=== PATIENT | female | born 1935 | race Caucasian/White ===

== ENCOUNTER 2024-01-04 10:16 | Emergency (ER) | payer MEDICARE, OTHER ==
[2024-01-04 12:48] LABS: #Basophils Less than 0.03 10x3/uL (0.0-0.2); %Basophils 0.1 % (0.0-1.0); %Eosinophils 0.4 % (0.0-10.0); %Lymphocytes 13.3 % (21.0-51.0); %Monocytes 8.6 % (0.0-10.0); %Neutrophils 77.1 % (42.0-75.0); Hematocrit 32.7 % (36.0-47.0); Hemoglobin 10.3 g/dL (12.0-16.0); Mean Corpuscular HGB CONC 31.5 g/dL (32.0-36.0); Mean Corpuscular Hemoglobin 31.1 pg (27.0-31.0); Mean Corpuscular Volume 98.8 fL (78.0-98.0); Mean Platelet Volume 10.4 fL (7.4-10.4); Platelet Count 211 10x3/uL (130-400); Red Blood Cell (RBC) Count 3.31 mill/uL (4.20-5.40)
[2024-01-04 13:11] LABS: ALT (SGPT) 19 U/L (8-55); AST (SGOT) 21 U/L (5-34); Albumin 2.7 g/dL (3.4-4.8); Alkaline Phosphatase 135 U/L (40-110); Anion Gap 13 mmol/L (10-20); BUN (Urea Nitrogen) 19 mg/dL (9.8-20.1); Bilirubin, Total 0.5 mg/dL (0.2-1.2); Calc. Creatinine Clearance 0 mL/min (70-130); Calcium 8.3 mg/dL (7.8-10.44); Carbon Dioxide 23 mmol/L (23-31); Chloride 112 mmol/L (98-107); Estimated GFR 73; Glucose 114 mg/dL (83-110); Potassium 3.1 mmol/L (3.5-5.1); Protein, Total 5.7 g/dL (5.8-8.1); Sodium 145 mmol/L (136-145)
[2024-01-04 13:13] LABS: Troponin I Less than 0.010 ng/mL (< 0.028)
[2024-01-04 16:20] LABS: Bacteria/HPF 4+ HPF (None Seen); Bilirubin Negative (Negative); Blood, Urine 1+ (Negative); CAUTI Indications for Culture Pelvic or flank pain; Clarity Turbid (Clear); Glucose, Urine (Dipstick) Normal (Negative); Ketone, Urine Negative (Negative); Leukocyte 250 Leu/uL (Negative); Nitrite Negative (Negative); Protein, Urine (Dipstick) Negative (Neg-Trace); RBC/HPF 0-3 HPF (0-3); Specific Gravity, Urine 1.012 (1.002-1.036); Squamous Epithelial 0-3 HPF (0-3); Urobilinogen Normal mg/dL (Less than 2); WBC/HPF 0-3 HPF (0-3); pH, Urine 6.5 (5.0-9.0)
[2024-01-04 16:21] LABS: Urine Culture Reflex No No
== END 2024-01-04 18:19 ==
LOC: ERS 10:16
DX: M25.551 Pain in right hip (principal); E11.9 Type 2 diabetes mellitus without complications; E03.9 Hypothyroidism, unspecified; I48.91 Unspecified atrial fibrillation; Z79.01 Long term (current) use of anticoagulants; Z79.890 Hormone replacement therapy; Z79.899 Other long term (current) drug therapy
CPT/HCPCS: 36415; 72170; 80053; 81001; 84484; 85025

== ENCOUNTER 2025-02-09 10:27 | Observation (INO) | payer MEDICARE ==
[~2025-02-09 10:27] MED LIST: Iopamidol-370 76% 500 ML MDV (1 ML CHARGE) ONE
[2025-02-09] MEDS ORDERED: Ondansetron PF 4 MG/2 ML Vial ONE (12:07)
[2025-02-09 12:35] LABS: #Basophils Less than 0.03 10x3/uL (0.0-0.2); #Eosinophils Less than 0.03 10x3/uL (0.0-0.7); #Monocytes 0.44 10x3/uL (0.11-0.59); #Neutrophils 10.87 10x3/uL (1.40-6.50); %Basophils 0.1 % (0.0-1.0); %Eosinophils 0.0 % (0.0-10.0); %Lymphocytes 5.2 % (21.0-51.0); %Monocytes 3.7 % (0.0-10.0); %Neutrophils 90.4 % (42.0-75.0); Hematocrit 34.5 % (36.0-47.0); Hemoglobin 10.9 g/dL (12.0-16.0); Mean Corpuscular Hemoglobin 29.5 pg (27.0-31.0); Mean Corpuscular Volume 93.5 fL (78.0-98.0); Platelet Count 175 10x3/uL (130-400); Red Blood Cell (RBC) Count 3.69 mill/uL (4.20-5.40); White Blood Cell (WBC) Count 12.01 10x3/uL (4.8-10.8)
[2025-02-09 12:47] LABS: ALT (SGPT) 41 U/L (Less than 34); AST (SGOT) 32 U/L (11-34); Albumin 3.3 g/dL (3.1-4.5); Alkaline Phosphatase 146 U/L (40-110); Anion Gap 14 mmol/L (10-20); BUN (Urea Nitrogen) 28 mg/dL (9.8-20.1); Bilirubin, Total 0.5 mg/dL (0.3-1.2); Calc. Creatinine Clearance 0 mL/min (70-130); Calcium 7.8 mg/dL (7.8-10.44); Carbon Dioxide 22 mmol/L (23-31); Chloride 110 mmol/L (98-107); Globulin 2.9 g/dL (2.4-3.5); Glucose 227 mg/dL (83-110); Lipase 35 U/L (8-78); Magnesium 1.3 mg/dL (1.6-2.6); Potassium 2.9 mmol/L (3.5-5.1); Sodium 143 mmol/L (136-145)
[2025-02-09 12:48] LABS: Troponin I Less than 0.010 ng/mL (< 0.028)
[2025-02-09] MEDS ORDERED: Magnesium 2 GM/50 ML BAG (IN WATER) ONE ×2 (13:12→15:13)
[2025-02-09] MEDS ORDERED: Mag-Al 1200 mg/1200 mg/30 ML UDCUP ONE (13:12)
[2025-02-09] MEDS ORDERED: Lidocaine Viscous Sol 2% 15 ml UD Cup ONE (13:12)
[2025-02-09] MEDS ORDERED: Potassium Chloride 20 MEQ (100 mL) BAG ONE (13:12)
[2025-02-09 13:20] LABS: INR-International Normal Ratio 1.3; Prothrombin Time 16.4 sec (12.0-14.7)
[2025-02-09 13:21] LABS: PTT 30.6 sec (22.9-36.1)
[2025-02-09 13:50] LABS: D-Dimer Test 0.95 mcg/mL (0.27-0.43)
[2025-02-09] MEDS ORDERED: Acetaminophen 325 MG TAB PO PRN (14:24)
[2025-02-09] MEDS ORDERED: Senokot S 8.6-50 MG TAB PO PRN (14:24)
[2025-02-09] MEDS ORDERED: Electrolyte Replacement Protocol 1 EACH FS SCH (14:30)
[2025-02-09] MEDS ORDERED: Mag-Al Plus 1200/1200/120 MG (30 mL) UDCUP PO PRN (14:31)
[2025-02-09 15:19] LABS: CAUTI Indications for Culture Alt mental st,lethar; Glucose, Urine (Dipstick) Normal (Negative); Leukocyte Negative Leu/uL (Negative); Protein, Urine (Dipstick) Negative (Neg-Trace); Specific Gravity, Urine 1.014 (1.002-1.036); WBC/HPF 0-3 HPF (0-3)
[2025-02-09 15:20] LABS: Bacteria/HPF 1+ HPF (None Seen)
[2025-02-09 15:21] LABS: Urine Culture Reflex No No
[2025-02-09 16:07] LABS: Troponin I 0.014 ng/mL (< 0.028)
[2025-02-09 16:31] VITALS: BMI 16.6
[2025-02-09] MEDS: Metoclopramide HCl 10 MG (2 mL) VIAL IVP SCH ×2 (17:24→21:20)
[2025-02-09 20:11] LABS: Magnesium 2.9 mg/dL (1.6-2.6); Potassium 3.7 mmol/L (3.5-5.1)
[2025-02-09 20:16] LABS: Troponin I 0.036 ng/mL (< 0.028)
[2025-02-09] MEDS: Potassium Chloride 20 MEQ in Premix 1 BAG IVPB SCH (21:21)
[2025-02-09] MEDS: Pantoprazole 40 MG VIAL IVP SCH (21:21)
[2025-02-09] MEDS: Ondansetron PF 4 MG/2 ML Vial IVP PRN (23:50)
[2025-02-10 05:09] LABS: #Basophils Less than 0.03 10x3/uL (0.0-0.2); #Eosinophils Less than 0.03 10x3/uL (0.0-0.7); #Monocytes 0.61 10x3/uL (0.11-0.59); #Neutrophils 8.71 10x3/uL (1.40-6.50); %Basophils 0.1 % (0.0-1.0); %Eosinophils 0.1 % (0.0-10.0); %Lymphocytes 9.3 % (21.0-51.0); %Monocytes 5.9 % (0.0-10.0); %Neutrophils 84.1 % (42.0-75.0); Hematocrit 38.2 % (36.0-47.0); Hemoglobin 11.9 g/dL (12.0-16.0); Mean Corpuscular Hemoglobin 30.1 pg (27.0-31.0); Mean Corpuscular Volume 96.7 fL (78.0-98.0); Platelet Count 221 10x3/uL (130-400); Red Blood Cell (RBC) Count 3.95 mill/uL (4.20-5.40); White Blood Cell (WBC) Count 10.35 10x3/uL (4.8-10.8)
[2025-02-10 05:30] LABS: ALT (SGPT) 35 U/L (Less than 34); AST (SGOT) 25 U/L (11-34); Albumin 3.4 g/dL (3.1-4.5); Alkaline Phosphatase 143 U/L (40-110); Anion Gap 12 mmol/L (10-20); BUN (Urea Nitrogen) 15 mg/dL (9.8-20.1); Bilirubin, Total 0.6 mg/dL (0.3-1.2); Calc. Creatinine Clearance 36 mL/min (70-130); Calcium 8.1 mg/dL (7.8-10.44); Carbon Dioxide 21 mmol/L (23-31); Chloride 114 mmol/L (98-107); Globulin 2.9 g/dL (2.4-3.5); Glucose 173 mg/dL (83-110); Potassium 4.0 mmol/L (3.5-5.1); Sodium 143 mmol/L (136-145)
[2025-02-10] MEDS ORDERED: Non-Formulary Item 1 EACH (Levothyroxine Sodium [Levothyroxine Sodium] 75 MCG Capsule) PO SCH (06:00)
[2025-02-10 08:15] LABS: Troponin I 0.070 ng/mL (< 0.028)
[2025-02-10] MEDS: Aspirin 81 mg Enteric Coated Tablet PO SCH (09:32)
[2025-02-10] MEDS: Enoxaparin 40 MG (0.4 mL) SYRINGE SC SCH (09:32)
[2025-02-10] MEDS: Apixaban 2.5 MG TAB PO SCH (09:32)
[2025-02-10] MEDS: Amiodarone 200 MG TAB PO SCH (09:32)
[2025-02-10 12:27] VITALS: BP 134/66; TEMP 98.8
== END 2025-02-10 14:05 | disposition home or self-care (01) ==
LOC: SUATTDRO 10:27 → ERS 10:27 → OBS 14:24
PROVIDERS: ADMIT Internal Medicine; ATTEND Family Medicine
DX: R07.89 Other chest pain (principal); R10.13 Epigastric pain; K44.9 Diaphragmatic hernia without obstruction or gangrene; E87.6 Hypokalemia; R79.89 Other specified abnormal findings of blood chemistry; I10 Essential (primary) hypertension; I25.10 Atherosclerotic heart disease of native coronary artery without angina pectoris; E11.9 Type 2 diabetes mellitus without complications; E78.5 Hyperlipidemia, unspecified; E03.9 Hypothyroidism, unspecified; Z79.899 Other long term (current) drug therapy; Z79.890 Hormone replacement therapy
CPT/HCPCS: 71045; 71275; 74174; 80053 ×2; 81001; 83605; 83690; 83735; 83880; 84132; 84484 ×3; 85025 ×2; 85379; 85610; 85730; 93005; 94760; 96365; 96366; 96368; 96372; 96375 ×2; 96376 ×3; 99285; G0378 ×3; J1650; J2270; J2405; J2470 ×2; J2765 ×2; J3475; J3480; J7030; Q9967; 36415